=== PATIENT | male | born 1940 | race Caucasian/White ===

== ENCOUNTER → 2016-11-06 | Outpatient (REF) | payer MEDICARE, MEDICAID ==
[2016-11-06 17:43] LABS: ALBUMIN 3.3 GM/DL (3.2-5.2); ALBUMIN/GLOBULIN RATIO 0.97 (1.00-1.93); ALKALINE PHOSPHATASE 77 U/L (45-117); ALT/SGPT 21 U/L (12-78); ANION GAP 15 MEQ/L (8-16); AST/SGOT 19 U/L (15-37); BILIRUBIN,TOTAL 0.3 MG/DL (0.2-1.0); BLOOD UREA NITROGEN 43 MG/DL (7-18); CALCIUM LEVEL 8.4 MG/DL (8.8-10.2); CARBON DIOXIDE LEVEL 23 MEQ/L (21-32); CHLORIDE LEVEL 108 MEQ/L (98-107); CREATININE FOR GFR 2.09 MG/DL (0.70-1.30); GLUCOSE, FASTING 187 MG/DL (83-110); POTASSIUM SERUM 3.9 MEQ/L (3.5-5.1); SODIUM LEVEL 146 MEQ/L (136-145); TOTAL PROTEIN 6.7 GM/DL (6.4-8.2)
[2016-11-06 17:47] LABS: VITAMIN B12 LEVEL 968 PG/ML (247-911)
[2016-11-06 17:48] LABS: FOLATE > 24.0 NG/ML (>5.4)
[2016-11-06 18:56] LABS: MEAN CORPUSCULAR HGB CONC 26.9 g/dl (32.0-36.5); MEAN CORPUSCULAR VOLUME 70.4 fl (80.0-96.0); PLATELET COUNT, AUTOMATED 407 k/mm3 (150-450); RED CELL DISTRIBUTION WIDTH 18.4 % (11.5-14.5); WHITE BLOOD COUNT 17.4 K/mm3 (4.0-10.0)
[2016-11-06 19:29] LABS: ANISOCYTOSIS 2+; HYPOCHROMASIA 2+; MICROCYTOSIS 2+
== END ==
LOC: M SFHCCLAY 11:13
PROVIDERS: ATTEND Family Medicine
DX: R06.02 Shortness of breath (principal); D64.9 Anemia, unspecified; I10 Essential (primary) hypertension; R73.01 Impaired fasting glucose
CPT/HCPCS: 80053; 82607; 82746; 83036; 83540; 83880; 85025; G0463

== ENCOUNTER 2017-03-01 09:39 | Outpatient (RCR) | payer MEDICARE, MEDICAID ==
[2017-04-05] MEDS ORDERED: FOLI1TAB4 PO (10:45)
[2017-04-05] MEDS ORDERED: METO1TAB7 PO (10:45)
[2017-04-05] MEDS ORDERED: FURO40TA2 PO (10:45)
[2017-04-05] MEDS ORDERED: ALBU83IN INH (10:45)
[2017-04-05] MEDS ORDERED: ASPI81TA85 PO (10:45)
[2017-04-05] MEDS ORDERED: DULO1CAP3 PO (10:45)
[2017-04-05] MEDS ORDERED: OMEP20CA3 PO (10:45)
[2017-04-05] MEDS ORDERED: FERR1TAB8 PO (10:45)
[2017-04-05] MEDS ORDERED: SIMV40TA2 PO (10:45)
[2017-04-05] MEDS ORDERED: WARF-20 PO (10:45)
[2017-04-05] MEDS ORDERED: AMLO10TA2 PO (10:45)
[2017-04-05] MEDS ORDERED: METF500T13 PO (10:45)
[2017-04-05] MEDS ORDERED: ZYLO300T4 PO (10:45)
[2017-04-05] MEDS ORDERED: LISI-538 PO (10:45)
[2017-04-05] MEDS ORDERED: TOPR50TA PO (10:45)
[2017-04-05] MEDS ORDERED: WARF-58 PO (10:45)
[2017-04-05] MEDS ORDERED: MULTCAP12 PO (10:45)
== END 2017-03-19 | disposition home or self-care (01) ==
LOC: M ST 09:39
PROVIDERS: ATTEND Family Medicine
DX: Z51.89 Encounter for other specified aftercare (principal); I69.90 Unspecified sequelae of unspecified cerebrovascular disease; I69.369 Other paralytic syndrome following cerebral infarction affecting unspecified side

== ENCOUNTER → 2017-03-22 | Outpatient (REF) | payer MEDICARE, MEDICAID ==
[~2017-03-22] MED LIST: ALBU83IN INH; AMLO10TA2 PO; ASPI81TA85 PO; DULO1CAP3 PO; FERR1TAB8 PO; FOLI1TAB4 PO; FURO40TA2 PO; LISI-538 PO; METF500T13 PO; METO1TAB7 PO; MULTCAP12 PO; OMEP20CA3 PO; SIMV40TA2 PO; TOPR50TA PO; WARF-20 PO; WARF-58 PO; ZYLO300T4 PO
[2017-03-22 19:20] LABS: BASO # 0.1 K/mm3 (0.0-0.2); BASO % 1.5 % (0.0-1.0); EOS # 0.5 K/mm3 (0.0-0.50); EOS % 6.6 % (0.0-3.0); LARGE UNSTAINED CELL # 0.3 K/mm3 (0.0-0.4); LARGE UNSTAINED CELL % 3.6 % (0.0-4.0); LYMPH # 1.7 K/mm3 (1.5-4.5); LYMPH % 21.3 % (24.0-44.0); MEAN CORPUSCULAR HGB CONC 33.2 g/dl (32.0-36.5); MEAN CORPUSCULAR VOLUME 90.6 fl (80.0-96.0); MONO # 0.6 K/mm3 (0.0-0.8); MONO % 6.7 % (0.0-5.0); NEUTROPHILS # 4.9 K/mm3 (1.8-7.7); NEUTROPHILS % 60.3 % (36.0-66.0); PLATELET COUNT, AUTOMATED 218 k/mm3 (150-450); RED CELL DISTRIBUTION WIDTH 15.7 % (11.5-14.5); WHITE BLOOD COUNT 8.1 K/mm3 (4.0-10.0)
[2017-03-22 20:45] LABS: ALBUMIN 3.6 GM/DL (3.2-5.2); ALBUMIN/GLOBULIN RATIO 1.03 (1.00-1.93); BILIRUBIN,TOTAL 0.4 MG/DL (0.2-1.0); CALCIUM LEVEL 9.3 MG/DL (8.8-10.2); CREATININE FOR GFR 1.41 MG/DL (0.70-1.30); TOTAL PROTEIN 7.1 GM/DL (6.4-8.2); URIC ACID 3.5 MG/DL (3.5-7.2)
[2017-03-22 21:00] LABS: POTASSIUM SERUM 5.6 MEQ/L (3.5-5.1)
== END ==
LOC: M SFHCCLAY 13:56
PROVIDERS: ATTEND Family Medicine
DX: D64.9 Anemia, unspecified (principal); N18.3 Chronic kidney disease, stage 3 (moderate); R73.01 Impaired fasting glucose; E78.5 Hyperlipidemia, unspecified; M10.9 Gout, unspecified
CPT/HCPCS: 80053; 80061; 83036; 83540; 84550; 85025; G0463

== ENCOUNTER → 2017-04-13 | Day surgery (SDC) | payer MEDICARE, MEDICAID ==
[~2017-04-13] VITALS: Ht 175.3 cm; Wt 82.1 kg
[~2017-04-13] MED LIST changes: +ACETAMINOPHEN 325 MG TAB PO PRN; +ACETYLCHOLINE OPHTH SOLN 1% 2ML (MIOCHOL-E) As Ordered ONE; +AcetaZOLAMIDE 500 MG ER CAP PO ONE; +BALANCED SALT IRRIGATION SOLUTION 500ML BAG (FOR OR EYE MACHINE) As Ordered ONE; +CYCLOPENTOLATE 2% OPHTH SOLN 2ML BTL As Ordered ONE; +CYCLOPENTOLATE 2% OPHTH SOLN 2ML BTL OD ONE; +HEALON DUET (HEALON 10MG/ML 0.55ML & HEALON ENDOCOAT 30MG/ML 0.85ML) As Ordered ONE; +KETOROLAC 0.5% OPHTH SOLN OD ONE; +LIDOCAINE 1% SDV 5 ML VIAL As Ordered ONE; +LIDOCAINE 4% INJ 5 ML AMP OU ONE; +LR 1,000 ML IV SCH; +MIDAZOLAM INJ 2 MG/2 ML VIAL (J2250) As Ordered ONE; +MOXIFLOXACIN IN BSS 0.25MG/0.25ML INTRACAMERAL INJ (OR EYE ONLY)(J2280) As Ordered ONE; +OFLOXACIN 0.3 % (OCUFLOX) OPTH SOL 5ML As Ordered ONE; +OFLOXACIN 0.3 % (OCUFLOX) OPTH SOL 5ML OD ONE; +PHENYLEPHRINE 2.5% OPHTH SOL 2ML As Ordered ONE; +PHENYLEPHRINE 2.5% OPHTH SOL 2ML OD ONE; +POVIDONE-IODINE 5% OPHTH PREP SOL 30ML As Ordered ONE; +PROPARACAINE 0.5% OPHTH SOL 15ML OD PRN; +TRIAMCINOLONE PRES FR 40 MG/ML 1ML(TRIESENCE)(OR EYE ONLY)(J3300 PER 1MG) As Ordered ONE; +TRIMETHOBENZAMIDE 300 MG CAP PO PRN; +TROPICAMIDE 1% OPHTH SOLN 2ML As Ordered ONE; +TROPICAMIDE 1% OPHTH SOLN 2ML OD ONE; +fentaNYL 100 MCG/2 ML INJECTION (J3010) As Ordered ONE
[2017-04-13 13:33] VITALS: BP 146/63
== END | disposition home or self-care (01) ==
LOC: M SDC 10:54
PROVIDERS: ATTEND Ophthalmology
DX: H25.9 Unspecified age-related cataract (principal); I10 Essential (primary) hypertension; I25.10 Atherosclerotic heart disease of native coronary artery without angina pectoris; M10.9 Gout, unspecified; K21.9 Gastro-esophageal reflux disease without esophagitis; J44.9 Chronic obstructive pulmonary disease, unspecified; D64.9 Anemia, unspecified; F32.9 Major depressive disorder, single episode, unspecified; E78.5 Hyperlipidemia, unspecified; Z86.73 Personal history of transient ischemic attack (TIA), and cerebral infarction without residual deficits; Z79.01 Long term (current) use of anticoagulants; Z79.899 Other long term (current) drug therapy
CPT/HCPCS: 66984; J2250; J2280; J3010; J3300; V2632

== ENCOUNTER → 2017-07-15 | Outpatient (CLI) | payer MEDICARE, MEDICAID ==
[~2017-07-15] MED LIST changes: -ACETAMINOPHEN 325 MG TAB PO PRN; -ACETYLCHOLINE OPHTH SOLN 1% 2ML (MIOCHOL-E) As Ordered ONE; -AcetaZOLAMIDE 500 MG ER CAP PO ONE; -BALANCED SALT IRRIGATION SOLUTION 500ML BAG (FOR OR EYE MACHINE) As Ordered ONE; -CYCLOPENTOLATE 2% OPHTH SOLN 2ML BTL As Ordered ONE; -CYCLOPENTOLATE 2% OPHTH SOLN 2ML BTL OD ONE; -HEALON DUET (HEALON 10MG/ML 0.55ML & HEALON ENDOCOAT 30MG/ML 0.85ML) As Ordered ONE; -KETOROLAC 0.5% OPHTH SOLN OD ONE; -LIDOCAINE 1% SDV 5 ML VIAL As Ordered ONE; -LIDOCAINE 4% INJ 5 ML AMP OU ONE; -LR 1,000 ML IV SCH; -MIDAZOLAM INJ 2 MG/2 ML VIAL (J2250) As Ordered ONE; -MOXIFLOXACIN IN BSS 0.25MG/0.25ML INTRACAMERAL INJ (OR EYE ONLY)(J2280) As Ordered ONE; -OFLOXACIN 0.3 % (OCUFLOX) OPTH SOL 5ML As Ordered ONE; -OFLOXACIN 0.3 % (OCUFLOX) OPTH SOL 5ML OD ONE; -PHENYLEPHRINE 2.5% OPHTH SOL 2ML As Ordered ONE; -PHENYLEPHRINE 2.5% OPHTH SOL 2ML OD ONE; -POVIDONE-IODINE 5% OPHTH PREP SOL 30ML As Ordered ONE; -PROPARACAINE 0.5% OPHTH SOL 15ML OD PRN; -TRIAMCINOLONE PRES FR 40 MG/ML 1ML(TRIESENCE)(OR EYE ONLY)(J3300 PER 1MG) As Ordered ONE; -TRIMETHOBENZAMIDE 300 MG CAP PO PRN; -TROPICAMIDE 1% OPHTH SOLN 2ML As Ordered ONE; -TROPICAMIDE 1% OPHTH SOLN 2ML OD ONE; -fentaNYL 100 MCG/2 ML INJECTION (J3010) As Ordered ONE
--- NOTE | 2017-07-16 11:03 | REP ---
CHEST, TWO VIEWS: Two views of the chest are performed. I have no prior study for comparison. There is diffuse left pleural thickening. There is interstitial fibrosis throughout the left lung. No consolidation is seen bilaterally. There is asymmetric left apical pleural thickening. Heart is normal in size. There is mild calcification of the thoracic aorta . Multiple sternal wires and mediastinal clips are present. IMPRESSION: Diffuse left pleural thickening. Diffuse interstitial fibrosis in the left lung. Subtle acute abnormality on the left could easily be obscured by these findings. If clinical symptoms persist recommend CT of the chest.
== END ==
LOC: M CLY 15:03
PROVIDERS: ATTEND Family Medicine
DX: J84.10 Pulmonary fibrosis, unspecified (principal); R91.8 Other nonspecific abnormal finding of lung field
CPT/HCPCS: 71020; G0463

== ENCOUNTER → 2017-09-27 | Outpatient (REF) | payer MEDICARE, MEDICAID ==
[2017-09-27 18:42] LABS: ALBUMIN 3.4 GM/DL (3.2-5.2); ALKALINE PHOSPHATASE 78 U/L (45-117); ALT/SGPT 27 U/L (12-78); ANION GAP 5 MEQ/L (8-16); AST/SGOT 19 U/L (7-37); BILIRUBIN,TOTAL 0.4 MG/DL (0.2-1.0); BLOOD UREA NITROGEN 21 MG/DL (7-18); CARBON DIOXIDE LEVEL 32 MEQ/L (21-32); CHLORIDE LEVEL 103 MEQ/L (98-107); CREATININE FOR GFR 1.51 MG/DL (0.70-1.30); GLOMERULAR FILTRATION RATE 47.9 (>42); GLUCOSE, FASTING 191 MG/DL (83-110); POTASSIUM SERUM 4.4 MEQ/L (3.5-5.1); SODIUM LEVEL 140 MEQ/L (136-145); TOTAL PROTEIN 6.8 GM/DL (6.4-8.2)
[2017-09-27 19:31] LABS: ESTIMATED AVERAGE GLUCOSE 143 MG/DL (60-110); HEMOGLOBIN A1c 6.6 %
== END ==
LOC: M SFHCCLAY 10:38
DX: I10 Essential (primary) hypertension (principal); E11.9 Type 2 diabetes mellitus without complications
CPT/HCPCS: 80053

== ENCOUNTER → 2018-03-10 | Outpatient (CLI) | payer MEDICARE, MEDICAID | LOC: M CLY 10:04 | DX: M19.071 Primary osteoarthritis, right ankle and foot (principal); R93.7 Abnormal findings on diagnostic imaging of other parts of musculoskeletal system | CPT/HCPCS: 73630; G0463 ==

== ENCOUNTER → 2018-03-17 | Outpatient (REF) | payer MEDICARE, MEDICAID ==
[2018-03-17 17:00] LABS: BASO # 0.1 10^3/uL (0.0-0.2); BASO % 1.1 % (0.0-1.0); EOS # 0.7 10^3/uL (0.0-0.50); EOS % 6.8 % (0.0-3.0); HEMATOCRIT 44.3 % (42.0-52.0); HEMOGLOBIN 14.5 g/dl (13.5-17.5); IMMATURE GRANULOCYTE % 0.7 % (0-3.0); LYMPH # 2.6 10^3/uL (1.5-4.5); LYMPH % 23.7 % (24.0-44.0); MEAN CORPUSCULAR HGB CONC 32.7 g/dl (32.0-36.5); MEAN CORPUSCULAR VOLUME 94.7 fl (80.0-96.0); MONO # 0.8 10^3/uL (0.0-0.8); MONO % 7.6 % (0.0-5.0); NEUTROPHILS # 6.5 10^3/uL (1.8-7.7); NEUTROPHILS % 60.1 % (36.0-66.0); PLATELET COUNT, AUTOMATED 296 10^3/uL (150-450); RED BLOOD COUNT 4.68 10^6/uL (4.30-6.10); WHITE BLOOD COUNT 10.8 10^3/uL (4.0-10.0)
[2018-03-17 17:11] LABS: ANION GAP 9 MEQ/L (8-16); BLOOD UREA NITROGEN 47 MG/DL (7-18); CALCIUM LEVEL 9.1 MG/DL (8.8-10.2); CARBON DIOXIDE LEVEL 27 MEQ/L (21-32); CHLORIDE LEVEL 105 MEQ/L (98-107); CREATININE FOR GFR 2.76 MG/DL (0.70-1.30); GLOMERULAR FILTRATION RATE 23.9 (>42); GLUCOSE, FASTING 146 MG/DL (70-100); SODIUM LEVEL 141 MEQ/L (136-145); URIC ACID 3.7 MG/DL (3.5-7.2)
[2018-03-17 17:12] LABS: POTASSIUM SERUM 5.7 MEQ/L (3.5-5.1)
== END ==
LOC: M SFHCCLAY 10:49
DX: M79.671 Pain in right foot (principal); L03.119 Cellulitis of unspecified part of limb
CPT/HCPCS: 84550

== ENCOUNTER → 2018-03-24 | Outpatient (REF) | payer MEDICARE, MEDICAID ==
[2018-03-24 16:35] LABS: ALBUMIN 3.6 GM/DL (3.2-5.2); ALKALINE PHOSPHATASE 89 U/L (45-117); ALT/SGPT 29 U/L (12-78); ANION GAP 7 MEQ/L (8-16); AST/SGOT 13 U/L (7-37); BILIRUBIN,TOTAL 0.4 MG/DL (0.2-1.0); BLOOD UREA NITROGEN 45 MG/DL (7-18); CALCIUM LEVEL 8.9 MG/DL (8.8-10.2); CARBON DIOXIDE LEVEL 27 MEQ/L (21-32); CHLORIDE LEVEL 105 MEQ/L (98-107); CHOLESTEROL LEVEL 160 MG/DL (<200); CHOLESTEROL RISK RATIO 4.571 (<5); CREATININE FOR GFR 2.53 MG/DL (0.70-1.30); GLOMERULAR FILTRATION RATE 26.4 (>42); GLUCOSE, FASTING 182 MG/DL (70-100); HDL CHOLESTEROL 35 MG/DL (>40); LDL CHOLESTEROL 57.2 MG/DL (<100); NON-HDL-C 125 MG/DL; SODIUM LEVEL 139 MEQ/L (136-145); TOTAL PROTEIN 7.2 GM/DL (6.4-8.2); TRIGLYCERIDES LEVEL 339 MG/DL (<150)
[2018-03-24 16:42] LABS: POTASSIUM SERUM 5.5 MEQ/L (3.5-5.1)
[2018-03-24 16:50] LABS: ESTIMATED AVERAGE GLUCOSE 140 MG/DL (60-110); HEMOGLOBIN A1c 6.5 %
== END ==
LOC: M SFHCCLAY 10:57
DX: N18.3 Chronic kidney disease, stage 3 (moderate) (principal); R73.01 Impaired fasting glucose; E78.5 Hyperlipidemia, unspecified
CPT/HCPCS: 80053

== ENCOUNTER → 2018-07-05 | Outpatient (CLI) | payer MEDICARE, MEDICAID | LOC: M CARPUL 09:02 | DX: R01.1 Cardiac murmur, unspecified (principal) | CPT/HCPCS: 93306 ==

== ENCOUNTER → 2018-10-10 | Outpatient (REF) | payer MEDICARE, MEDICAID ==
[~2018-10-10] MED LIST changes: -AMLO10TA2 PO; +AMLO10TA5 PO; +FOLI1TAB11 PO; -FOLI1TAB4 PO; -TOPR50TA PO; +TOPR50TA23 PO; -ZYLO300T4 PO; +ZYLO300T6 PO
== END ==
LOC: M SFHCCLAY 10:47
PROVIDERS: ATTEND Family Medicine
DX: I69.90 Unspecified sequelae of unspecified cerebrovascular disease (principal); Z51.81 Encounter for therapeutic drug level monitoring; Z79.01 Long term (current) use of anticoagulants

== ENCOUNTER → 2018-12-29 | Outpatient (CLI) | payer MEDICARE, MEDICAID ==
[~2018-12-29] MED LIST changes: +TOPR50TA PO; -TOPR50TA23 PO
--- NOTE | 2018-12-29 14:53 | REP ---
Right foot five views: Comparison is 03/10/2018. There is a focal density in the calcaneus today measuring 2.2 cm. This measured 1.6 cm previously. This is of uncertain significance and could represent an osteoma or blastic metastasis. Correlation for a calcaneal pain is recommended. Followup MRI or bone scan might be considered. There is demineralization. This is unchanged. There is mild joint space narrowing of the DIP and PIP articulations, unchanged. The MTP articulations T T articulations and carpal articulations are unremarkable. There are no other calcifications. Impression: Calcaneal calcified density as described. Consider follow-up MRI or bone scan. Joint space narrowing compatible with early osteoarthritic change. Demineralization. No fracture or dislocation. Electronically Signed by Charlie Arellano MD 12/29/2018 02:44 P
== END ==
LOC: M CLY 11:38
PROVIDERS: ATTEND Family Medicine
DX: M19.071 Primary osteoarthritis, right ankle and foot (principal); M79.671 Pain in right foot
CPT/HCPCS: 73630; G0463

== ENCOUNTER → 2019-01-13 | Outpatient (CLI) | payer MEDICARE, MEDICAID ==
[~2019-01-13] MED LIST changes: +PROHANCE 279.3MG/ML 5ML VIAL (A9576) As Ordered ONE
--- NOTE | 2019-01-13 12:31 | REP ---
MRI RIGHT FOOT WITH AND WITHOUT CONTRAST: Comparison radiographs 12/29/2018 and 03/10/2018. Multiple sequences obtained in the axial, coronal and sagittal planes prior to and following the intravenous administration of 8 mL ProHance. The study is performed to evaluate a sclerotic calcaneal bone lesion. In the calcaneus at the site of the bone lesion on radiographs, there is an oval slightly irregular lesion which is hypointense on T1 and T2. It does not enhance. This is consistent with a benign bone island. It measures approximately 1.5 x 1.1 x 0.7 cm. There is no enhancement. No other bone lesion is seen. There is no bone marrow edema or occult fracture of the osseous structures of the foot. There is mild scattered soft tissue edema throughout the foot. Mild fluid around the flexor hallucis longus tendon in the hindfoot may represent mild tenosynovitis. Otherwise the flexor and extensor tendons appear intact. The other ligaments and tendons at the ankle appear intact. IMPRESSION: Benign bone lesion in the calcaneus is most consistent with a benign bone island, with no suspicious signal or enhancement. No other osseous abnormality. Mild fluid around the flexor hallucis longus tendon in the hindfoot may represent mild tenosynovitis. There is also mild nonspecific diffuse soft tissue edema of the foot. Electronically Signed by Charlie Lam MD 01/16/2019 01:32 P
== END ==
LOC: M RAD 09:09
PROVIDERS: ATTEND Family Medicine
DX: M89.9 Disorder of bone, unspecified (principal); M79.9 Soft tissue disorder, unspecified
CPT/HCPCS: 73720; A9576

== ENCOUNTER → 2019-02-07 | Outpatient (REF) | payer MEDICARE, MEDICAID ==
[~2019-02-07] MED LIST changes: -PROHANCE 279.3MG/ML 5ML VIAL (A9576) As Ordered ONE
[2019-02-07 17:18] LABS: ALBUMIN 3.2 GM/DL (3.2-5.2); BILIRUBIN,TOTAL 0.3 MG/DL (0.2-1.0); C REACTIVE PROTEIN QUANTITATIV 2.22 MG/DL (0.00-0.30); CALCIUM LEVEL 8.5 MG/DL (8.8-10.2); CREATININE FOR GFR 1.52 MG/DL (0.70-1.30); GLOMERULAR FILTRATION RATE 47.5 (>42); POTASSIUM SERUM 4.9 MEQ/L (3.5-5.1); URIC ACID 3.6 MG/DL (3.5-7.2)
[2019-02-07 17:24] LABS: BASO # 0.2 10^3/uL (0.0-0.2); BASO % 1.5 % (0.0-1.0); EOS # 0.6 10^3/uL (0.0-0.50); EOS % 5.6 % (0.0-3.0); HEMATOCRIT 42.6 % (42.0-52.0); HEMOGLOBIN 13.4 g/dl (13.5-17.5); LYMPH # 1.8 10^3/uL (1.5-4.5); LYMPH % 16.5 % (24.0-44.0); MEAN CORPUSCULAR HEMOGLOBIN 28.5 pg (27.0-33.0); MEAN CORPUSCULAR HGB CONC 31.5 g/dl (32.0-36.5); MEAN CORPUSCULAR VOLUME 90.4 fl (80.0-96.0); MONO # 0.9 10^3/uL (0.0-0.8); MONO % 8.3 % (0.0-5.0); NEUTROPHILS # 7.4 10^3/uL (1.8-7.7); NEUTROPHILS % 67.6 % (36.0-66.0); PLATELET COUNT, AUTOMATED 308 10^3/uL (150-450); RED BLOOD COUNT 4.71 10^6/uL (4.30-6.10)
[2019-02-07 20:51] LABS: ERYTHROCYTE SEDIMENTATION RATE 45 mm/hr (0-20)
[2019-02-10 00:07] LABS: ANA (HEP2) Positive (.); CYCLIC CITRULLINATED PEPTIDE 3 units (0-19)
== END ==
LOC: M SFHCCLAY 11:47
PROVIDERS: ATTEND Family Medicine
DX: M10.9 Gout, unspecified (principal); I10 Essential (primary) hypertension; M79.652 Pain in left thigh; E11.9 Type 2 diabetes mellitus without complications; M79.671 Pain in right foot
CPT/HCPCS: 80053; 82550; 83036; 84550; 85025; 85652; 86038; 86140; 86200; G0463

== ENCOUNTER → 2019-02-28 | Outpatient (REF) | payer MEDICARE, MEDICAID ==
[2019-02-28 13:10] LABS: BASO # 0.1 10^3/uL (0.0-0.2); BASO % 1.5 % (0.0-1.0); EOS # 0.4 10^3/uL (0.0-0.50); EOS % 4.6 % (0.0-3.0); HEMATOCRIT 39.8 % (42.0-52.0); HEMOGLOBIN 12.4 g/dl (13.5-17.5); LYMPH # 1.7 10^3/uL (1.5-4.5); LYMPH % 18.1 % (24.0-44.0); MEAN CORPUSCULAR HGB CONC 31.2 g/dl (32.0-36.5); MEAN CORPUSCULAR VOLUME 89.8 fl (80.0-96.0); MONO # 0.8 10^3/uL (0.0-0.8); MONO % 8.8 % (0.0-5.0); NEUTROPHILS # 6.4 10^3/uL (1.8-7.7); NEUTROPHILS % 66.7 % (36.0-66.0); PLATELET COUNT, AUTOMATED 255 10^3/uL (150-450); RED BLOOD COUNT 4.43 10^6/uL (4.30-6.10); WHITE BLOOD COUNT 9.6 10^3/uL (4.0-10.0)
[2019-02-28 13:33] LABS: C REACTIVE PROTEIN QUANTITATIV 5.18 MG/DL (0.00-0.30); RHEUMATOID FACTOR QUANT < 10.0 IU/ML (<15.0); URIC ACID 3.8 MG/DL (3.5-7.2)
[2019-02-28 15:41] LABS: ERYTHROCYTE SEDIMENTATION RATE 63 mm/hr (0-20)
[2019-03-02 00:07] LABS: Lyme Disease IgG/IgM Antibodie <0.91 ISR (0.00-0.90); Lyme Disease IgM Ab Quantitati <0.80 index (0.00-0.79)
== END ==
LOC: M LABDRAW1 12:56
PROVIDERS: ATTEND Physician Assistant Surgical
DX: M79.671 Pain in right foot (principal)

== ENCOUNTER → 2019-05-05 | Outpatient (CLI) | payer MEDICARE, MEDICAID ==
[~2019-05-05] MED LIST changes: -DULO1CAP3 PO; +DULO1CAP6 PO; -OMEP20CA3 PO; +OMEP20CA4 PO
--- NOTE | 2019-05-05 15:02 | REP ---
THREE-PHASE BONE SCAN OF THE KNEES, CALVES, AND LOWER EXTREMITIES: HISTORY: Chondrocalcinosis right knee. Right knee pain. TECHNIQUE: 21.5 mCi technetium 99m MDP is injected and standard three-phase imaging of the knees and blood pool and delayed scan imaging of the calves and feet and ankles are acquired. SCINTIGRAPHIC FINDINGS: The anterior and posterior flow study is normal and symmetric. Blood pool images of the knees and calves are normal and symmetric. The blood pool images at the feet demonstrate mildly increased uptake in the 1st MTP joints bilaterally. Delayed scan images show mild arthritic uptake in each knee. Delayed scan images of the feet ankles show no significant abnormality. IMPRESSION: Minimal arthritic uptake in each knee on delayed images. Otherwise negative three-phase imaging. Electronically Signed by Jerry Peoples MD 05/05/2019 03:24 P
== END ==
LOC: M RAD 09:06
PROVIDERS: ATTEND Physical Medicine & Rehabilitation
DX: M11.261 Other chondrocalcinosis, right knee (principal)
CPT/HCPCS: 78315; A9503

== ENCOUNTER → 2019-07-19 | Outpatient (CLI) | payer MEDICARE, MEDICAID ==
[~2019-07-19] MED LIST changes: +HEPARIN 1,000 UNITS/ML 10ML VIAL (FOR RADIOLOGY& DIALYSIS ONLY) As Ordered ONE; +ISOVUE-300 61% 50ML VIAL (Q9967) As Ordered ONE; +LIDOCAINE 1% MDV 20ML VIAL As Ordered ONE; +MIDAZOLAM INJ 2 MG/2 ML VIAL (J2250) As Ordered ONE; +diphenhydrAMINE INJ 50MG/ML VIAL (J1200) As Ordered ONE; +fentaNYL 100 MCG/2 ML INJECTION (J3010) As Ordered ONE
[2019-07-19 09:31] LABS: HEMATOCRIT 37.1 % (42.0-52.0); HEMOGLOBIN 11.3 g/dl (13.5-17.5); MEAN CORPUSCULAR HGB CONC 30.5 g/dl (32.0-36.5); MEAN CORPUSCULAR VOLUME 85.3 fl (80.0-96.0); PLATELET COUNT, AUTOMATED 375 10^3/uL (150-450); RED BLOOD COUNT 4.35 10^6/uL (4.30-6.10); WHITE BLOOD COUNT 11.6 10^3/uL (4.0-10.0)
[2019-07-19 09:43] LABS: INR 2.11; PROTHROMBIN TIME 23.5 SECONDS (11.8-14.0)
[2019-07-19 09:52] LABS: CALCIUM LEVEL 9.1 MG/DL (8.8-10.2); CREATININE FOR GFR 1.58 MG/DL (0.70-1.30); GLOMERULAR FILTRATION RATE 45.3 (>42); POTASSIUM SERUM 5.4 MEQ/L (3.5-5.1)
--- NOTE | 2019-07-19 11:56 | ROOPDOC ---
[facility] Report Of Operation Report of Operation DATE OF PROCEDURE: 07/19/19 PREPROCEDURE DIAGNOSES: Atherosclerosis of the [place] vessels of the right lower extremity with claudication and pain POSTPROCEDURE DIAGNOSES: Same PROCEDURE: 1. Antegrade ultrasound-guided access right superficial femoral artery 2. Right lower extremity arteriograms with runoff to the foot 3. Angioplasty right superficial femoral artery with 4 x 200 Otoe balloon 4. Stent right superficial femoral artery with 5 x 150 innova stent and post- dilation with 4 x 200 balloon 5. Completion arteriograms 6. Angioplasty proximal posterior tibial artery with 3 x 40 Otoe balloon, and low atmosphere inflation across small pseudoaneurysm right posterior tibial distal artery with resolution of pseudoaneurysm 7. Minx closure right upper facial femoral artery SURGEON: Everton Vallejo MD ANESTHESIA: Local anesthesia lidocaine 7 mL. Moderate intravenous conscious sedation was supervised by Dr. Vallejo. The patient was independently monitored by registered nurse and signed to the Department of radiology using automated blood pressure, EKG, and pulse oximetry. The detailed sedation record is permanently house in the hospital information system. This is the brace sedation record: Start time 09:56, stop time 11:24, Versed 1 mg IV, fentanyl 25 g IV. CONTRAST: 59 mL Isovue INDICATION FOR PROCEDURE: This is a very pleasant 79-year-old gentleman who resides in a longterm status post CVA and has pain in his right lower extremity. He was examined by Dr. Palmer who noted he had diminished pulses in the right lower extremity and ordering a noninvasive arterial study. The patient had notable SFA disease, and we discussed the risks benefits and alternatives to an arteriogram potential intervention. After a lengthy discussion with the patient and his son, they were both agreeable to proceed and informed consent was obtained. We will proceed with a elevated INR today, of 2.1, with extra care to prevent postoperative bleeding. INTERPRETATION: 1. The SFA has several areas of bulky plaque with 60-90% stenoses focally. This runs from the proximal mid SFA to Agustin's canal. The main areas of heavy plaque and near occlusion are in the mid SFA. Distal to this, there is widely patent inflow through the popliteal artery and 3 vessel runoff to the foot. There is a 50% stenosis at the origin of the posterior tibial artery but it does fill distal to this and runs off to the foot. 2. 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 A second long inflation at low atmospheres was performed and this was not significantly better. After stenting, and post-dilation, there was no extravasation, the AV fistula was resolved and there was excellent flow through the SFA with no flow limitations. 3. After this completion arteriograms revealed a small pseudoaneurysm in the distal posterior tibial artery, likely a small perforation from her Glidewire during placement and removal of the balloons and stents. Possible the wire temporarily was pushed in a little further then we anticipated at one point. After 3 inflations at low atmospheres with a 3 x 40 Otoe balloon, we still had a present pseudoaneurysm, likely due to elevated INR. Therefore, I did a third inflation and held gentle pressure over the area on the cath, and this resolved the pseudoaneurysm on completion arteriograms. We also had widely patent inflow through the posterior tibial artery after angioplasty of the origin with a 3 x 40 Otoe balloon. No extravasation, AV fistula, embolization or dissection were noted on final imaging. REPORT OF PROCEDURE: The patient was brought to the angiographic suite in stable condition and placed supine on the fluoroscopic table. His bilateral groins were prepped and draped in a sterile fashion. A timeout was performed. Sedation was administered without complication. Ultrasound was used to map the superficial femoral artery in the proximal thigh near the groin. There was significant calcification of the vessel but we were able to find a spot on ultrasound proximal to this for access. Local anesthesia was administered and a microneedle was used to access the vessel and it antegrade fashion. The patient has an aortobifem bypass, thus an up and over access is not possible. We passed the wire through the access under fluoroscopic guidance and the needle was removed. A micro-sheath was placed and the Glidewire was then advanced carefully through the SFA navigating through the areas of stenosis near occlusion, and placing the tip of the wire in the popliteal artery. We then exchanged for sheath for a short 6 Peruvian sheath and flushed sheath with saline. Through this access we placed the 4 x 200 Otoe balloon and did a three-minute inflation at 4 rafael. Following this, there was a small AV fistula near a heavy area of plaque, residual flow-limiting stenosis, and multiple dissections. We did a second low atmosphere inflation for 3 minutes, but not much improvement was noted. We therefore placed a 5 x 150 stent and post-dilated with her 4 x 200 balloon. Following this, the AV fistula have resolved, there is no extravasation, and there was no flow-limiting stenosis remaining and brisk flow was noted throughout the SFA. On completion arteriograms below the knee, we did not note any embolization or dissection, but we did notice small perforation with pseudoaneurysm at the distal posterior tibial artery. We initially tried to correct this with a low atmosphere inflation of the 3 x 40 Otoe balloon across the area, but after 2 three-minute inflations, there is still flow into the pseudoaneurysm. Therefore, I inflated the balloon at 1 rafael for a third time and held pressure over the area manually on the cath, and after 3 minutes, completion arteriogram showed that the pseudoaneurysm have resolved and there wa s no extravasation. Since there was a ogle stenosis at the origin the posterior tibial artery in her balloon was already in place, we did angioplasty the origin of the posterior tibial artery with excellent brisk three-vessel runoff following angioplasty. This concluded her procedure. A minx closure device was deployed over the superficial femoral artery and good hemostasis was noted. Pressure was held for 10 minutes and the patient was transferred to recovery in stable condition. He tolerated the procedure very well. ESTIMATED BLOOD LOSS: Approximately 5 mL. COMPLICATIONS: None. PLAN: Discharge after 4 hours of bedrest back to the longterm and resume all prior medications. We will see the patient back within the week to check his access site on the right upper thigh. He should continue his Coumadin, INR is currently therapeutic at 2.1. EVERTON VALLEJO MD Jul 19, 2019 11:55
[2019-07-19 15:15] VITALS: BP 173/72
== END ==
LOC: M IRPRO 08:32
PROVIDERS: ATTEND Surgery Vascular Surgery
DX: I70.211 Atherosclerosis of native arteries of extremities with intermittent claudication, right leg (principal); I70.221 Atherosclerosis of native arteries of extremities with rest pain, right leg; I77.0 Arteriovenous fistula, acquired; I72.4 Aneurysm of artery of lower extremity; Z86.73 Personal history of transient ischemic attack (TIA), and cerebral infarction without residual deficits
CPT/HCPCS: 37226; 37228; 75710; 80048; 85027; 85610; 99152; 99153; C1725; C1729; C1769; C1876; C1887; C1894; J2250; J3010; Q9967

== ENCOUNTER → 2019-09-06 | Outpatient (CLI) | payer MEDICARE, MEDICAID ==
[~2019-09-06] MED LIST changes: -HEPARIN 1,000 UNITS/ML 10ML VIAL (FOR RADIOLOGY& DIALYSIS ONLY) As Ordered ONE; -ISOVUE-300 61% 50ML VIAL (Q9967) As Ordered ONE; -LIDOCAINE 1% MDV 20ML VIAL As Ordered ONE; -MIDAZOLAM INJ 2 MG/2 ML VIAL (J2250) As Ordered ONE; +OMEP-172 PO; -OMEP20CA4 PO; -SIMV40TA2 PO; +SIMV40TA20 PO; -diphenhydrAMINE INJ 50MG/ML VIAL (J1200) As Ordered ONE; -fentaNYL 100 MCG/2 ML INJECTION (J3010) As Ordered ONE
--- NOTE | 2019-09-06 13:36 | REP ---
Bilateral lower extremity arterial Doppler ultrasound: History: Atherosclerosis of the [place] arteries and rest pain right leg. Comparison is made with angiography imaging from July 18, 2019. Status post angioplasty with stenting . Findings: Ankle brachial indices are bilaterally low, 0.60 on the right and the left. Extensive plaquing is seen throughout both lower extremity arteries. Monophasic waveforms are observed throughout both lower extremities. On the right there is diffuse narrowing of the superficial femoral artery with stenosis leading to occlusion revascularization just proximal to the superficial femoral artery stent. Minimal flow is seen distally in the stent. There is a left mid SFA stenosis and a left profunda stenosis seen. Right lower extremity arterial Doppler velocity chart: Distal aorta 60 cm/S Right KINA 57 Right D I A 63 CF A 63 Profunda 116 Proximal SFA 27/45 Mid SFA 6.2/36 Distal SFA 14 Popliteal 23 Proximal AT A 16 Tibioperoneal trunk 30 Proximal VENTILATION MECHANIC 16 Distal VENTILATION MECHANIC 23 Distal AT A 17 Left lower extremity arterial Doppler velocity chart: Distal aorta 60 cm/S Left KINA 62 Left D I A 61 CF A 53 Profunda 150 Proximal SFA 67 Mid SFA 75/169 Distal SFA 31 Popliteal 28 Proximal AT A 28 Tibioperoneal trunk 35 Proximal VENTILATION MECHANIC 26 Distal VENTILATION MECHANIC 13 Distal AT A 17 Electronically Signed by Jerry Peoples MD 09/06/2019 01:28 P
== END ==
LOC: M RAD 10:35
PROVIDERS: ATTEND Physician Assistant
DX: I69.351 Hemiplegia and hemiparesis following cerebral infarction affecting right dominant side (principal); I70.213 Atherosclerosis of native arteries of extremities with intermittent claudication, bilateral legs; Z79.01 Long term (current) use of anticoagulants

== ENCOUNTER → 2020-06-12 | Outpatient (CLI) | payer MEDICARE, MEDICAID ==
[~2020-06-12] MED LIST changes: -AMLO10TA5 PO; +AMLO1TAB25 PO; -ASPI81TA85 PO; +ASPI81TA86 PO; -OMEP-172 PO; +OMEP1CAP73 PO
--- NOTE | 2020-06-21 09:54 | REP ---
BILATERAL LOWER EXTREMITY ARTERIAL DOPPLER ULTRASOUND HISTORY: Atherosclerotic disease. Intermittent claudication. Hemiplegia due to stroke. FINDINGS: Ankle brachial indices are reduced measured at 0.54 on the right and 0.64 on the left. Severe plaquing is seen throughout the bilateral lower extremity arterial systems. Monophasic waveforms are noted throughout the arterial tree on the right. Biphasic arterial waveforms are noted on the left. Multiple stenoses are visible including a 6:1 velocity stenosis in the proximal superficial femoral artery on the right, a 2:1 velocity ratio stenosis in the proximal superficial femoral artery on the left, and a 2.5:1 velocity ratio stenosis in the mid superficial femoral artery on the left. The mid and distal superficial femoral artery on the right are occluded. The right superficial artery stent is occluded. RIGHT LOWER EXTREMITY VELOCITY CHART PSV RIGHT (cm/s) Distal aorta 28 Common iliac artery 52 External iliac artery 55 ACCOUNTANT AUDITOR 56/31 Profunda 101 Proximal SFA 196/0 Mid SFA Occluded Distal SFA Occluded Popliteal Revascularized 23 Proximal RAFAT 21 tibioperoneal trunk 18 Proximal CLIENT SUCCESS SPECIALIST 30 Distal CLIENT SUCCESS SPECIALIST 22 Distal RAFAT 19 LEFT LOWER EXTREMITY VELOCITY CHART PSV LEFT (cm/s) Aorta 28 Common iliac artery 44 External iliac artery 44 ACCOUNTANT AUDITOR 45/103 Profunda 193 Proximal SFA 80/223 Mid SFA 91/224 Distal SFA 30 Popliteal 27 Proximal RAFAT 33 Tibioperoneal trunk 28 Proximal CLIENT SUCCESS SPECIALIST 39 Distal CLIENT SUCCESS SPECIALIST 21 Distal RAFAT 11 MTDD
== END ==
LOC: M RAD 12:20
PROVIDERS: ATTEND Surgery Vascular Surgery
DX: I70.213 Atherosclerosis of native arteries of extremities with intermittent claudication, bilateral legs (principal); G81.90 Hemiplegia, unspecified affecting unspecified side; Z86.73 Personal history of transient ischemic attack (TIA), and cerebral infarction without residual deficits; R09.89 Other specified symptoms and signs involving the circulatory and respiratory systems